=== PATIENT | male | born 1965 | race Two or more races ===

== ENCOUNTER 2025-07-14 11:52 | Emergency (ER) | payer OTHER ==
[~2025-07-14] VITALS: Ht 175.3 cm; Wt 80.8 kg
[2025-07-14 11:57] VITALS: TEMP 98.6
--- NOTE | 2025-07-14 14:20 | ED.PDOC ---
Kevin. trauma (HPI) HPI Comments A 59 YEAR OLD MALE PRESENTS TO THE ED WITH COMPLAINT OF RIGHT POSTERIOR RIB PAIN STATUS POST FALL. PATIENT STATES HE ACCIDENTALLY SLIPPED AND FELL OUT OF HIS BED YESTERDAY NIGHT AND LANDED ON HIS RIGHT RIBS. PATIENT REPORTS HE IS NOW EXPERIENCING RIGHT POSTERIOR RIB PAIN WITH BRUISING TO THE AREA. PATIENT DENIES HEAD INJURY, NECK INJURY, LOC, FEVER, CHILLS, SHORTNESS OF BREATH, CHEST PAIN, ABDOMINAL PAIN, NAUSEA, VOMITING, HEADACHE, OR OTHER COMPLAINTS. NO OTHER SYMPTOMS OR MODIFYING FACTORS AT THIS TIME. PATIENT IS ALERT, ORIENTED X 4, AND HAS STEADY GAIT. Chief Complaint: Fall Injury Time Seen by MD: 12:43 Reviewed notes: Nurses Notes, Medications, Allergies Allergies: Coded Allergies: NO KNOWN ALLERGIES (Unverified , 07/14/25) Home Meds Active Scripts Hydrocodone-Acetaminophen (Hydrocodone Bitartrate/AC 5-325 mg) 1 Tab Tab, 1 TAB PO TID, #15 TAB Prov:RICCARDO LINTON 07/14/25 Information Source: Patient Mode of Arrival: Wheelchair Severity: Moderate Timing: Days Duration: Since onset, Days Prehospital treatment: None Location: Other (RIGHT POSTERIOR RIB PAIN) Location of laceration: None Mechanism: Fall Associated signs and symtoms: None Past Medical History PAST MEDICAL HISTORY: Denies Surgical History: Denies all surgeries Family History Family History: Reviewed,noncontributory to illness Social History Smoker: Non-Smoker Alcohol: Denies ETOH Use Drugs: Denies Drug Use Lives In: Home Constitutional: denies: chills, diaphoresis, fatigue, fever, malaise, sweats, weakness, others EENTM: denies: blurred vision, double vision, ear bleeding, ear discharge, ear drainage, ear pain, ear ringing, eye pain, eye redness, hearing loss, mouth cristopher n, mouth swelling, nasal discharge, nose bleeding, nose congestion, nose pain, photophobia, tearing, throat pain, throat swelling, voice changes, others Respiratory: denies: cough, hemoptysis, orthopnea, SOB at rest, shortness of breath, SOB with excertion, stridor, wheezing, others Cardiovascular: denies: chest pain, dizzy spells, diaphoresis, Dyspnea on exertion, edema, irregular heart beat, left arm pain, lightheadedness, palpitations, PND, syncope, others Gastrointestinal: denies: abdomen distended, abdominal pain, blood streaked bowels, constipated, diarrhea, dysphagia, difficulty swallowing, hematemesis, melena, nausea, poor appetite, poor fluid intake, rectal bleeding, rectal pain, vomiting, others Genitourinary: denies: burning, dysuria, flank pain, frequency, hematuria, incontinence, penile discharge, penile sore, pain, testicle pain, testicle swelling, urgency, others Neurological: denies: dizziness, fainting, headache, left sided numbness, left sided weakness, numbness, paresthesia, pre-existing deficit, right sided numbness, right sided weakness, seizure, speech problems, tingling, tremors, weakness, others Musculoskeletal: reports: joint pain, muscle pain, others (RIGHT POSTERIOR RIB PAIN); denies: back pain, gout, joint swelling, muscle stiffness, neck pain Integumetry: denies: bruises, change in color, change in hair/nails, dryness, laceration, lesions, lumps, rash, wounds, others Allergic/Immunocompromised: denies: Difficulty Healing, Frequent Infections, Hives, Itching, others Hematologic/Lymphatic: denies: anemia, blood clots, easy bleeding, easy bruising, swollen glands, others Endocrine: denies: excessive hunger, excessive sweating, excessive thirst, excessive urination, flushing, intolerance to cold, intolerance to heat, unexplained weight gain, unexplained weight loss, others Psychiatric: denies: anxiety, bipolar disorder, depression, hopeless, panic disorder, schizophrenia, sleepless, suicidal, others All Other Systems: Reviewed and Negative Physical Exam General Appearance: No Apparent Distress, Normal HEENT: Normal ENT Inspection, PERRL/EOMI, Pharynx Normal, TMs Normal Neck: Full Range of Motion, Non-Tender, Normal, Normal Inspection Respiratory: Chest Non-Tender, Lungs Clear, No Accessory Muscle Use, No Respiratory Distress, Normal Breath Sounds Cardiovascular: No Edema, No JVD, No Murmur, No Gallop, Normal Peripheral Pulses, Regular Rate/Rhythm Breast Exam: Deferred Gastrointestinal: No Organomegaly, Non Tender, No Pulsatile Mass, Normal Bowel Sounds, Soft Genitalia: Deferred Pelvic: Deferred Rectal: Deferred Extremities: No calf tenderness, Normal capillary refill, Normal inspection, Normal range of motion, Non-tender, No pedal edema Musculoskeletal : Location: Right Apperance: Tenderness: Moderate (BONY TENDERNESS, CONTUSION AND MILD SWELLING ON RIGHT MIDDLE RIBS, NO OPEN WOUND AND DEFORMITY. ) Neurologic: Alert, online user experience strategist II-XII nml as Tested, No Motor Deficits, Normal Affect, Normal Mood, No Sensory Deficits Cerebellar Function: Normal Reflexes: Normal Skin: Dry, Normal Color, Warm Peripheral Pulses: 2+ carotid (R), 2+ carotid (L), 2+ dorsalis pedis (R), 2+ dorsalis pedis (L) Lymphatic: No Adenopathy Was a procedure done? Was a procedure done?: No Differential Diagnosis Multiple Trauma: Fractures, Abrasions, Contusion, Other (INTERCOSTAL MUSCLE STRAIN, RIB SPRAIN) Neck Injury: N/A X-Ray, Labs, Meds, VS Vital Signs Date Time Temp Pulse Resp B/P (MAP) Pulse Ox O2 Delivery O2 Flow Rate FiO2 07/14/25 11:57 98.6 91 17 108/72 96 98.6 CLINICAL INDICATION: FALL TECHNIQUE: 5 radiographic views of the right ribs were obtained. Comparison: None FINDINGS/IMPRESSION: Single-view chest shows no pneumothorax or pleural effusions. Slightly displaced fractures of the posterior right 9th and 10th ribs are seen. ATED BY: ALEXIS BEARD Jr., DO DICTATED DATE/TIME: 07/14/25 152 SIGNED BY: ALEXIS BEARD Jr., DO SIGNED DATE/TIME: 07/14/251526 CC: X-Ray, Labs, Meds, VS Comment EXTERNAL MEDICAL RECORDS REVIEWED: [NONE] INDEPENDENT HISTORIANS: [NONE] SOCIAL DETERMINANTS OF HEALTH: [NONE] LABS ORDERED: NONE REVIEWED AND INTERPRETED RESULTS: NONE IMAGING ORDERED: XR RIBS RT TREATMENTS ORDERED: NORCO 10/325 MG P.O. PROCEDURES PERFORMED: NONE CRITICAL CARE TIME: NONE I HAVE DISCUSSED THE PATIENT WITH THE ATTENDING PHYSICIAN DR. RODRIGUEZ AND HE AGREES WITH THE PATIENT'S PLAN OF CARE AND DISPOSITION. BASED ON HISTORY OF PRESENT ILLNESS, AND PHYSICAL EXAM, PATIENT WILL BE DISCHARGED HOME. DISCUSSED PLAN FOR DISCHARGE HOME WITH RX [NORCO 5/325]. MEDICATION WARNINGS GIVEN. SHARED DECISION MAKING: PATIENT INSTRUCTED TO FOLLOW UP WITH PRIMARY CARE PROVIDER IN 1-2 DAYS FOR RE-EVALUATION OF SYMPTOMS. PATIENT VERBALIZES UNDERSTANDING TO RETURN TO ED FOR NEW OR WORSENING SYMPTOMS OR IF FOLLOW UP WITH PCP CANNOT BE OBTAINED. PATIENT FEELS COMFORTABLE GOING HOME AT THIS TIME. ALL QUESTIONS ADDRESSED AT TIME OF DISCHARGE. Images Reviewed?: Images reviewed and evaluated by me Time of 1ST Reevaluation: 15:41 Reevaluation 1ST: Improved Patient Education/Counseling: Diagnosis, Treatment, Need For Follow Up Family Education/Counseling: Diagnosis, Treatment, Need For Follow Up Medical Screening: No EMC Exist At This Time Departure 1 Departure Time of Disposition: 15:41 Impression: Primary Impression: Closed fracture of two ribs of right side Qualified Codes: S22.41XA - Multiple fractures of ribs, right side, initial encounter for closed fracture Additional Impression: Status post fall Disposition: 01 HOME / SELF CARE / HOMELESS Condition: Stable Additional Instructions: FOLLOW-UP WITH PCP IN 1 TO 2 DAYS. TAKE MEDICATIONS PRESCRIBED. RETURN TO ED FOR ANY NEW OR WORSENING SYMPTOMS. e-Prescriptions Hydrocodone-Acetaminophen (Hydrocodone Bitartrate/AC 5-325 mg) 1 Tab Tab 1 TAB PO TID, #15 TAB Prov: RICCARDO LINTON 07/14/25 Discharged With: Self, Relative Critical Care Note Critical Care Time?: No Stability Stability form required: No I personally scribed for RICCARDO LINTON ([email or web address]) on 07/14/25 at 14:20. Electronically submitted by Curtis Becker ([email or web address]). I personally scribed for RICCARDO LINTON ([email or web address]) on 07/14/25 at 15:35. Electronically submitted by Curtis Becker ([email or web address]). RICCARDO LINTON Jul 14, 2025 14:20
--- NOTE | 2025-07-14 15:30 | DVH ---
CLINICAL INDICATION: FALL TECHNIQUE: 5 radiographic views of the right ribs were obtained. Comparison: None FINDINGS/IMPRESSION: Single-view chest shows no pneumothorax or pleural effusions. Slightly displaced fractures of the posterior right 9th and 10th ribs are seen.
[2025-07-14] MEDS ORDERED: HYDR-4902 PO (15:37)
[2025-07-14] MEDS: HYDROcodone-ACET 10/325MG TAB PO ONE (15:40)
[2025-07-14 15:42] VITALS: BP 118/87; PULSE 62; RESP 18; O2SAT 95
== END 2025-07-14 15:46 | disposition home or self-care (01) ==
LOC: ER 11:52
DX: S22.41XA Multiple fractures of ribs, right side, initial encounter for closed fracture (principal); Z79.891 Long term (current) use of opiate analgesic; W06.XXXA Fall from bed, initial encounter; Y93.89 Activity, other specified; Y92.092 Bedroom in other non-institutional residence as the place of occurrence of the external cause; Y99.8 Other external cause status
CPT/HCPCS: 71101